=== PATIENT | male | born 1955 | race Caucasian/White ===

== ENCOUNTER 2022-04-22 22:05 | Emergency (ER) | payer OTHER, SELFPAY ==
[2022-04-22] VITALS (8 sets, daily range): BP systolic 158; BP diastolic 119; PULSE 114–119; RESP 21–34; O2SAT 91
--- NOTE | 2022-04-22 22:00 | DI.CT_ITS ---
Exam(s) CT HEAD WO EXAM: CT HEAD WO CLINICAL HISTORY: COnfusion, sarcoidosis. TECHNIQUE: Imaging Protocol: Axial computed tomography images with coronal and sagittal reformatted images were created and reviewed COMPARISON: No exams were available for comparison FINDINGS: There are no skull fractures. There is no fluid in the visualized paranasal sinuses. There is no evidence of intracranial hemorrhage, mass effect, or shift of midline structures. There are no extra-axial fluid collections. The ventricles are not enlarged or shifted and there is no blo od within the ventricular system nor within the basal cisterns. IMPRESSION: No acute intracranial findings on this noninfused CT scan of the brain. RADIATION DOSE DELIVERED: 872.3mGy.cm Total DLP DATA REPOSITORY: All CT scans at this facility are submitted to the National Radiology Data Registry (NRDR) Dose Index Registry (DIR) with the [employer] ([employer]). RADIATION OPTIMIZATION: All CT scans at this facility use at least one of these dose optimization te chniques: automated exposure control; mA and/or kV adjustment per patient size (includes targeted exa ms where dose is matched to clinical indication); or iterative reconstruction.
--- NOTE | 2022-04-22 22:00 | RT.EKG_ITS ---
APPROVED REPORT Exam: Resting ECG Reason for Exam: confusion Patient Location: E HR:113 bpm ECG Measurements Heart Rate 113 AXIS [place] 160 P -14 QRSd 91 QRS 51 QT 299 T 59 QTc 408 Conclusion Sinus tachycardia Nonspecific ST elevation, anterior leads...ST >0.15mV in V1-V4
--- NOTE | 2022-04-22 22:06 | DI.RAD_ITS ---
Exam(s) XR CHEST 2V PA LATERAL EXAM: XR CHEST 2V PA LATERAL CLINICAL HISTORY: Fever. TECHNIQUE: 2D digital imaging was performed. COMPARISON: CR ABD FLAT UPRIGHT PA CHEST from 07/07/2010 FINDINGS: 2 views: Study limited by the patient's arms being down on the lateral view. Heart size is normal. The mediastinum is not widened. Lungs are clear. No infiltrates nor pleural effusions. IMPRESSION: No acute pulmonary findings. DATA REPOSITORY: RADIATION DOSE DELIVERED:
--- NOTE | 2022-04-22 22:07 | W.ED.GENAD ---
Discharge Plan Disposition Patient Disposition: OTHER Other Facility: [facility] Condition: Critical Discharge Details Clinical Impression: SARS-CoV-2 positive, Acute hyponatremia, Acute dehydration, Acute confusion Primary Care Provider: Unknown,Unknown ED Provider: Patrick Sahu Home Meds and New Rx's Prescriptions: No Action No Known Home Meds Medical Decision Making 66-year-old male who presents the ER via EMS. His partner states beginning last night he seemed confused and was up and wandering the house throughout the night. Today he developed a fever of 102 and she noted a cough at home this morning. This evening he seemed persistently confused and that he was poorly directable and seemed to be disoriented. EMS was called and patient was transported to the ER. He arrives afebrile, his pulse was 115 and blood pressure 158/119. Patient's partner states that he has had similar presentations in the past including with dehydration. States he has a history of sarcoidosis and took prednisone for many years but weaned himself off of medications and has not seen a physician in approximately a decade. He states he has been immunized and boosted against COVID-19. He does seem disoriented and confused, no clear focal neurologic deficit appreciated. Given the fever at home, mental status changes, a broad differential diagnosis considered including metabolic disorder, infectious process, dehydration. Patient given Ativan for anxiolysis. He is started on fluids and referred for laboratory work-up, chest x-ray, CT scan of the head. Patient's laboratories reveal lactic acid of 5.1, hyponatremia with sodium 127, potassium 3.7, chloride 92, bicarb 24, BUN 31 and creatinine 2.9. Magnesium slightly low at 1.6. Noted total bili 1.6, AST 65, ALT 51. Troponin is negative. Pt is COVID +. CT scan of the head without acute intracranial findings. Chest x-ray shows no acute disease. Patient spiked a temperature to 38 degrees. He was given acetaminophen. Approximately 3 L of fluid were infused. Patient's blood pressure has trended hypotensive to approximately 80-90 systolic. No current beds available at this institution, transfer request declined at [facility] due to lack of bed capacity, and transfer request also declined at [facility] due to bed capacity. [facility] are on diversion due to capacity issues. Follow-up 3 L of fluid patient's heart rate is 109 and blood pressure has stabilized to approximately 92/57 with a MAP of 65. He is making urine. The patient's partner, Dipak Horne, no longer has a listed phone number available. She had left the ER prior to completion of our work-up. At approximately 3:15 AM, patient was excepted to [facility], Dr. Hudson. HPI General Mode of arrival: EMS. Date/Time Provider Initiated Documentation: 04/22/22 22:10. Limitations to Documentation: altered mental status. Information obtained by: patient, family and EMS. History of Present Illness 66 year old M presents to the emergency department with the chief complaint of Confusion, fever at home, described as moderate, Patient started experiencing this hour(s) and it has been intermittent. No relieving factors improve symptom(s), No exacerbating factors reported . Patient notes confusion, fever/chills and weakness. Patient did receive the following treatments prior to arrival, none Related Data Home Medications Medication Instructions Recorded Confirmed Unknown [No Known Home Meds] 04/22/22 04/22/22 Allergies Allergy/AdvReac Type Severity Reaction Status Date / Time No Known Allergies Allergy Unverified 04/22/22 22:31 Review of Systems Narrative: Similar in the past when not taking enough liquids by mouth. No fall or injury. No recent illness. 8 systems reviewed and otherwise negative PFSH All Active Problems (Updated 04/22/22 @ 23:21 by Patrick Sahu MD) SARS-CoV-2 positive (Acute) Acute hyponatremia (Acute) Acute dehydration (Acute) Acute confusion (Acute) Social History Smoking/Tobacco Use Status: Never Smoking risk assessment performed?: Yes Substance use type: does not use Do you feel safe at home: Yes Do you feel safe in your relationship?: Yes Exam Narrative Exam Narrative: GEN: awake, well groomed, interactive. HEAD: Normocephalic, atraumatic ENT: Mucous membranes dry, oropharynx unremarkable, External ear exam unremarkable EYES: PERRL, EOMI NECK: Full ROM, no YONATAN, no menigismus CHEST/RESP: Nontender, clear to auscultation bilateral, no wheeze/rhonchi/rales CARDIOVASCULAR: Regular and tachycardic, no murmur, rub zita. 2+ Rad pulse bilateral ABDOMEN: Soft, nontender, no mass. +Bowel sounds EXT: Full ROM, no edema, no rash, cool Neuro: Grossly normal neurologic exam, no focal deficits. Psych: Speech fluent, patient confused
[2022-04-22] MEDS: Normal Saline 1,000 ML 1000 ML IV (22:35)
[2022-04-22 22:38] LABS: Abs Immature Grans 0.04 10^3/uL (0.0-0.06); Absolute Basophil Count 0.05 10^3/uL (0.0-0.2); Absolute Lymphocyte Count 1.02 10^3/uL (1.2-3.4); Absolute Monocyte Count 1.65 10^3/uL (0.1-0.8); Absolute Neutrophil Count 6.25 10^3/uL (1.2-6.7); Basophils % 0.6; HCT 50.9 % (40.0-50.0); HGB 17.2 g/dL (13.5-17.5); Immature Grans % 0.4; Lymphocytes % 11.3; MCH 29.8 pg (27.0-33.0); MCHC 33.8 % (32.0-36.0); MCV 88 fL (80-95); MPV 9.4 fL (8.0-11.0); Monocytes % 18.3; Neutrophils % 69.4; Platelet Count 183 10^3/uL (130-400); RBC 5.78 10^6/uL (4.36-5.78); RDW 12.3 % (11.8-14.1); RDW-SD 39.9 fL; WBC 9.01 10^3/uL (4.4-10.8)
[2022-04-22 22:48] LABS: ALT 51 U/L (16-63); AST 65 U/L (15-37); Albumin 3.4 g/dL (3.4-5.0); Alkaline Phosphatase 49 U/L (46-116); Anion Gap 10.7 mmol/L (3-11); BUN 31 mg/dL (7-18); Bilirubin, Total 1.6 mg/dL (0.2-1.0); CO2 24.3 mmol/L (21.0-32.0); CREATININE 2.9 mg/dL (0.70-1.30); Calcium 8.9 mg/dL (8.5-10.1); Chloride 92 mmol/L (98-107); Estimated GFR 23.42 (mL/min/1.73m2); Glucose 92 mg/dL (74-106); Magnesium 1.6 mg/dL (1.8-2.4); Potassium 3.7 mmol/L (3.5-5.1); Sodium 127 mmol/L (136-145); Total Protein 8.4 g/dL (6.4-8.2); Troponin I < 50 ng/L (<or=60)
[2022-04-22] MEDS: LORazepam 2 MG/ML VIAL 1 MG IVP ×2 (22:51→23:01)
[2022-04-22 22:54] LABS: Lactate 5.1 mmol/L (0.6-1.4)
[2022-04-22 23:07] LABS: Influenza A PCR Negative (Negative); Influenza B PCR Negative (Negative); RSV PCR Negative (Negative)
[2022-04-22 23:08] LABS: Diff Comment Agrees w/ Instrument; RBC Morphology Normal
[2022-04-22 23:16] LABS: COVID-19 PCR Positive (Negative); Source Nasopharynx
--- NOTE | 2022-04-22 23:22 | DI.VRAD_ITS ---
PROCEDURE INFORMATION: Exam: CT Head Without Contrast Exam date and time: 04/22/2022 11:12 PM Age: 66 years old Clinical indication: Other: Confusion, sarcoidosis TECHNIQUE: Imaging protocol: Computed tomography of the head without contrast. COMPARISON: No relevant prior studies available. FINDINGS: Brain: Mild volume loss. No hemorrhage. Unremarkable white matter. No mass effect. Cerebral ventricles: No ventriculomegaly. Paranasal sinuses: Visualized sinuses are unremarkable. No fluid levels. Mastoid air cells: Visualized mastoid air cells are well aerated. Bones/joints: Chronic nasal bone/nasal septal deformities No acute fracture. Soft tissues: Unremarkable. IMPRESSION: No acute intracranial abnormality. Dictated and Authenticated by: Kamron Hall MD. Ordering:CHARLETTE Nguyen MD
--- NOTE | 2022-04-22 23:39 | DI.VRAD_ITS ---
PROCEDURE INFORMATION: Exam: XR Chest Exam date and time: 04/22/2022 11:19 PM Age: 66 years old Clinical indication: Other: Sarcoidosis; Patient HX: Patient unable to follow instructions, unable to raise arms. TECHNIQUE: Imaging protocol: Radiologic exam of the chest. Views: 2 views. COMPARISON: No relevant prior studies available. FINDINGS: Lungs: Mild chronic interstitial prominence No consolidation. Pleural spaces: Unremarkable. No pleural effusion. No pneumothorax. Heart/Mediastinum: Unremarkable. No cardiomegaly. Bones/joints: Severe degenerative changes in the shoulders IMPRESSION: No acute findings. Dictated and Authenticated by: Kamron Hall MD. Ordering:CHARLETTE Nguyen MD
[2022-04-23] VITALS (97 sets, daily range): BP systolic 57–131; BP diastolic 36–86; PULSE 96–128; RESP 17–43; TEMP 36.8–38.1; O2SAT 68–100
[2022-04-23] MEDS: MAGNESIUM SULFATE 1 GM/100 ML BAG IVPB (00:02)
[2022-04-23] MEDS: Normal Saline 1,000 ML 1000 ML IV (00:15)
[2022-04-23] MEDS: Dexamethasone 10 MG/ML VIAL IVP (01:18)
[2022-04-23] MEDS: ACETAMINOPHEN 1,000 MG/100 ML BTL 400 MG IVPB (01:26)
[2022-04-23 01:59] LABS: Lactate 1.4 mmol/L (0.6-1.4)
[2022-04-23 02:17] LABS: Troponin I < 50 ng/L (<or=60)
[2022-04-23] MEDS: REMDESIVIR 200 MG in Normal Saline 250 ML 250 MG IVPB (02:20)
[2022-04-23 04:05] LABS: Bilirubin Small (Negative); Blood Moderate (Negative); Clarity Sl Cloudy (Clear); Glucose Negative (Negative); Ketones Negative (Negative); Leukocyte Esterase Negative (Negative); Nitrite Negative (Negative); Specific Gravity >= 1.030 (1.005-1.025); Urobilinogen 0.2 EU/dL (Up TO 0.2); pH 5.5 (5-8)
[2022-04-23 04:10] LABS: Bacteria Few HPF (Negative); C & S Indicated? No; Casts 10-20 Hyaline LPF (Negative); Crystals Negative HPF (Negative); Epithelial Cells Moderate HPF (Negative); Mucus Negative (Negative); WBC Negative HPF (0-5)
[2022-04-23] MEDS: Normal Saline 1,000 ML 150 ML IV (08:18)
--- NOTE | 2022-04-23 08:24 | NUR.NOTE ---
tera sent with [facility] if needed for patient care. :
--- NOTE | 2022-04-24 01:12 | NUR.NOTE ---
Patient transferred to [facility]. Blood Culture reported as Gram Positive Cocci in cluster. Dr Olga schmidt, result faxed to [place] [phone].
--- NOTE | 2022-04-25 17:20 | NUR.NOTE ---
patient's called to request that patient's lab results from visit be printed out for her to take to hospital he is at (new results from blood cultures). stated the hospital in [place] has not returned her calls. When the assistant community manager attempted to call the results to the hospital they were less than pleasant.
--- NOTE | 2022-04-26 15:41 | ED.FU.B_ITS ---
Follow Up Plan: I was notified of blood culture positive for staph epi. In 1 aerobic bottle, probable contaminant. I called [facility] where patient is currently inpatient and discussed results with nurse, results also faxed to the number that nurse provided.
--- NOTE | 2022-04-26 16:28 | NUR.NOTE ---
Taty Note: Preliminary blood culture results faxed to [facility] at Dr Veronique Mcconnell request. fax - [phone]
== END 2022-04-23 10:04 | disposition other institution (70) ==
PROVIDERS: Emergency Provider Emergency Medicine
DX: U07.1 COVID-19 (principal); E87.1 Hypo-osmolality and hyponatremia; E86.0 Dehydration; R41.0 Disorientation, unspecified
CPT/HCPCS: 36415; 80053; 87040; 87077; 87637; 93005; 96361; 96365; 96368; 96375; 99285; 70450; 71046; 81003; 81015; 83605; 83735; 84484; 85025; 87186; 93010; 99284; J0131; J0248; J1100; J2060; J3475